=== PATIENT | male | born 1945 | race Two or more races ===

== ENCOUNTER 2018-06-04 13:15 | Emergency (ER) | payer MEDICARE, MEDICAID ==
[~2018-06-04] VITALS: Ht 167.6 cm; Wt 68.0 kg
[2018-06-04] MEDS ORDERED: SODIUM CHLORIDE 0.9% 1,000 ML IV ONE (13:48)
[2018-06-04] MEDS ORDERED: ONDANSETRON HCL 4MG/2ML INJ IV STA (13:48)
[2018-06-04 14:43] LABS: BASOPHILS % 0.6 % (0.0-2.0); HEMATOCRIT. 40.9 % (42.0-52.0); HEMOGLOBIN. 13.8 g/dL (14.0-18.0); LYMPHOCYTES % 36.3 % (20.0-50.0); MEAN CORPUSCULAR HEMOGLOBIN 31.8 pg (28.0-32.0); MEAN PLATELET VOLUME 8.2 fl (7.4-10.4); MONOCYTES % 11.7 % (2.0-8.0); NEUTROPHILS % 49.4 % (40.0-76.0); PLATELET 190 x1000/uL (130-400); RED BLOOD CELL COUNT 4.35 mill/uL (4.7-6.1); RED CELL DISTRIBUTION WIDTH 12.8 % (11.6-14.6)
[2018-06-04 14:46] LABS: CHLORIDE 107 mEq/L (98-107)
[2018-06-04 14:47] LABS: INR 1.1; PROTHROMBIN TIME 10.8 sec (9.1-11.1)
[2018-06-04 14:48] LABS: CLARITY URINE CLEAR (CLEAR); COLOR URINE YELLOW (YELLOW); KETONES URINE NEGATIVE (NEGATIVE); LEUKOCYTE ESTERASE URINE NEGATIVE (NEGATIVE); NITRITE URINE NEGATIVE (NEGATIVE); OCCULT BLOOD URINE TRACE (NEGATIVE); PROTEIN URINE NEGATIVE (NEGATIVE); SPECIFIC GRAVITY URINE 1.015 (1.005-1.030); UROBILINOGEN URINE 0.2 E.U./dL (0.2-1.0)
[2018-06-04] MEDS ORDERED: KETOROLAC 30MG/ML VIAL IV ONE (16:15)
[2018-06-04 18:06] VITALS: BP 133/65
== END 2018-06-04 18:16 | disposition home or self-care (01) ==
LOC: ER 13:15
DX: R10.9 Unspecified abdominal pain (principal); R11.0 Nausea
CPT/HCPCS: 36415; 74176; 80053; 81003; 83690; 84484; 85025; 85610; 96374; 96375; 99284; J1885; J2405; J7030